=== PATIENT | female | born 1960 | race American Indian/Alaskan Native ===

== ENCOUNTER 2017-02-10 07:45 | Day surgery (SDC) | payer BC ==
[2017-02-01 10:04] VITALS: BMI 23.3
[2017-02-10] MEDS ORDERED: Propofol 10 mg/ml Inj (20 ML) ONE (10:20)
[2017-02-10] MEDS ORDERED: Sodium Chloride 0.9% 1,000 ML IV SCH (11:00)
[2017-02-10 14:54] VITALS: BP 135/90; PULSE 65; RESP 18; TEMP 97.5; O2SAT 100
== END 2017-02-10 12:59 | disposition home or self-care (01) ==
LOC: ENDO 07:45
PROVIDERS: ATTEND Internal Medicine Gastroenterology
DX: Z12.11 Encounter for screening for malignant neoplasm of colon (principal); K64.1 Second degree hemorrhoids; Z85.43 Personal history of malignant neoplasm of ovary
CPT/HCPCS: 45378; J2704; J7040